=== PATIENT | female | born 1985 | race Caucasian/White ===

== ENCOUNTER 2017-06-19 13:31 | Inpatient (IN) | payer OTHER ==
--- OUTSIDE RECORDS SUMMARY | ~2017-06-19 | XMS ---
Demographics + + + | Address | [address] | | | [place] [address] | + + + | Preferred Language | Unknown | + + + | Marital Status | Unknown | + + + | Jain Affiliation | Unknown | + + + | Race | Unknown | + + + | Ethnic Group | Unknown | + + + Author + + + | Author | [facility] | + + + | Organization | [facility] | + + + | Address | [address] | | | [place] [address] | + + + | Phone | | + + + Care Team Providers + + + + | Care Certified Massage Therapist Name | Role | Phone | + + + + Unavailable | Unavailable | + + + + PROBLEMS +---------+ + + +--------+ + + | Type | Condition | ICD9-CM | [id number] | Onset | Condition | SNOMED | | | | Code | Code | Dates | Status | Code | +---------+ + + +--------+ + + | Problem | Encounter | Z34.90 | | | Active | [id number] | | | for | | | | | | | | supervisio | | | | | | | | n of | | | | | | | | normal | | | | | | | | | | | | | | +---------+ + + +--------+ + + | Problem | Pharyngiti | | J02.9 | | Active | [id number] | | | s | | | | | | +---------+ + + +--------+ + + | Problem | Spotting | N92.0 | | | Active | [id number] | +---------+ + + +--------+ + + | Problem | Otitis | H60.90 | | | Active | 3968783 | | | externa | | | | | | +---------+ + + +--------+ + + | Problem | Lymphadeno | | R59.1 | | Active | 56557507 | | | lilly | | | | | | +---------+ + + +--------+ + + ALLERGIES No Information SOCIAL HISTORY Never Assessed PLAN OF CARE VITAL SIGNS MEDICATIONS Unknown Medications RESULTS No Results PROCEDURES No Known procedures IMMUNIZATIONS No Known Immunizations MEDICAL (GENERAL) HISTORY + + +--------+ | Type | Description | Date | + + +--------+ | Medical History | Anxiety/Depression - off | | | | medication | | + + +--------+ | Medical History | STD - condyloma 2005 | | + + +--------+ | Medical History | degenerative disc disease | | | | (L4-L5) | | + + +--------+ | Surgical History | cholecystectomy | 10/2015 | + + +--------+ | Surgical History | Laparoscopic Right | 2013 | | | Salpingectomy, | | | | Hysteroscopic Resection of | | | | Uterine Septum | | + + +--------+ | Surgical History | lipoma removed Right | 2004 | | | Shoulder | | + + +--------+ | Surgical History | wisdom teeth extract | | + + +--------+"
--- OUTSIDE RECORDS SUMMARY | ~2017-06-19 | XMS ---
Demographics + + + | Address | [address] | | | [place] [address] | + + + | Preferred Language | Unknown | + + + | Marital Status | Unknown | + + + | Catholic Affiliation | Unknown | + + + | Race | Unknown | + + + | Ethnic Group | Unknown | + + + Author + + + | Author | [facility] | + + + | Organization | [facility] | + + + | Address | [address] | | | [place] [address] | + + + | Phone | | + + + Care Team Providers + + + + | Care Physical Scientist Name | Role | Phone | + + + + Unavailable | Unavailable | + + + + PROBLEMS +---------+ + + +--------+ + + | Type | Condition | ICD9-CM | [id number] | Onset | Condition | SNOMED | | | | Code | Code | Dates | Status | Code | +---------+ + + +--------+ + + | Problem | Encounter | Z34.90 | | | Active | [id number] | | | for | | | | | | | | supervisio | | | | | | | | n of | | | | | | | | normal | | | | | | | | | | | | | | +---------+ + + +--------+ + + | Problem | Pharyngiti | | J02.9 | | Active | [id number] | | | s | | | | | | +---------+ + + +--------+ + + | Problem | Spotting | N92.0 | | | Active | [id number] | +---------+ + + +--------+ + + | Problem | Otitis | H60.90 | | | Active | 3493694 | | | externa | | | | | | +---------+ + + +--------+ + + | Problem | Lymphadeno | | R59.1 | | Active | [id number] | | | lilly | | | [...]
[~2017-06-19 13:31] MED LIST: ACETAMINOPHEN325 M1 PO; BENEFIBER1 EAC1 PO; DHEA50 MG PO; FISH OIL 1,0001 EAC1 PO; IBUPROFEN800 MG PO; MULTI VITAMIN1 EACH PO; NORCO 5-325 TA1 EACH PO; OXYCODON-ACETA1 EAC2 PO; PERCOCET 7.5-31 EACH PO; PRENATAL VITAM1 EAC3 PO; PROBIOTIC1 EAC1 PO; VITAMIN D1000 UNIT PO
[2017-06-20] MEDS ORDERED: PROBIOTIC1 EAC1 PO (01:11)
[2017-06-20] MEDS ORDERED: PRENATAL VITAM1 EAC7 PO (01:11)
== END 2017-06-21 14:30 | disposition home or self-care (01) | DRG 775 ==
LOC: FBC 06-20 00:02
PROVIDERS: ADMIT General Practice
PROC: 10E0XZZ Delivery of Products of Conception, External Approach (ICD-10-PCS; principal; 2017-06-20)
PROC: 0KQM0ZZ Repair Perineum Muscle, Open Approach (ICD-10-PCS; 2017-06-20)
PROC: 3E0P7VZ Introduction of Hormone into Female Reproductive, Via Natural or Artificial Opening (ICD-10-PCS; 2017-06-20)
PROC: 0UQMXZZ Repair Vulva, External Approach (ICD-10-PCS; 2017-06-20)
PROC: 00HU33Z Insertion of Infusion Device into Spinal Canal, Percutaneous Approach (ICD-10-PCS; 2017-06-20)
PROC: 3E0R3BZ Introduction of Anesthetic Agent into Spinal Canal, Percutaneous Approach (ICD-10-PCS; 2017-06-20)
DX: O24.420 Gestational diabetes mellitus in childbirth, diet controlled (principal); O77.0 Labor and delivery complicated by meconium in amniotic fluid; O71.82 Other specified trauma to perineum and vulva; O48.0 Post-term pregnancy; O70.1 Second degree perineal laceration during delivery; Z88.8 Allergy status to other drugs, medicaments and biological substances; Z87.891 Personal history of nicotine dependence; Z86.59 Personal history of other mental and behavioral disorders; Z37.0 Single live birth; Z3A.40 40 weeks gestation of pregnancy
CPT/HCPCS: 01960; 36415; 85027; J2300; J2590; J3010

== ENCOUNTER 2023-09-10 11:53 | Day surgery (SDC) | payer OTHER ==
[~2023-09-10] VITALS: Ht 160 cm; Wt 71.8 kg
[~2023-09-10 11:53] MED LIST changes: +IBLOOD GLUCOSE TEST STRIP 1 EA TEST VI PRN; +LACTATED RINGER'S 1,000 ML IV SCH; +LIDOCAINE HCL 1% 5 ML SDV INJ ONE; +MIDAZOLAM HCL 5 MG/5 ML VIAL IV PRN; +PRENATAL VITAM1 EAC7 PO; +fentaNYL citrate 100 MCG/2 ML VIAL IV PRN
[2023-09-10 12:11] VITALS: BP 121/72
[2023-09-10] MEDS ORDERED: B12 ACTIVE1000 MCG PO (12:13)
[2023-09-10] MEDS ORDERED: FORTEO2.4 M1 SQ (12:14)
[2023-09-10] MEDS ORDERED: EFFEXOR XR75 MG PO (12:15)
[2023-09-10] MEDS ORDERED: VENTOLIN HFA18 GM (12:15)
[2023-09-10] MEDS ORDERED: fentaNYL citrate 100 MCG/2 ML VIAL ONE (12:23)
[2023-09-10] MEDS ORDERED: MIDAZOLAM HCL 5 MG/5 ML VIAL ONE (12:23)
--- NOTE | 2023-09-10 14:08 | NUR ---
09/10/23 1408 Radha Chawla PT TO PACU SLEEPY BUT AROUSABLE RESPONDS TO VERBAL STIMULI. SHE DENIES PAIN AND NAUSEA.
[2023-09-10 14:31] VITALS: BP 109/69
--- NOTE | 2023-09-12 13:31 | OR ---
[facility] [address] [place], [place] [address] Signed DATE OF OPERATION: 09/10/2023 SURGEON: Umm [place] MD PREOPERATIVE DIAGNOSES: 1. History of anal fissure (resolved with medical therapy). 2. History of rectal bleeding. POSTOPERATIVE DIAGNOSES: 1. Minimal diverticula hepatic flexure. 2. Resolved anal fissure. 3. Minimal distal proctitis, probably prep related. PROCEDURE: Total colonoscopy to cecum with biopsy of rectum. ANESTHESIA: Intravenous sedation; fentanyl 100 mcg, Versed 6 mg. INDICATION: This 38-year-old white woman is a patient of Dr. Petit. She was having significant problems of constipation, perianal pain, blood per rectum, and so on. She is found to have a posterior anal fissure. Therapy included diltiazem ointment, fiber supplement, additional fluids and so forth. She has resolved her anal fissure clinically and is now to undergo colonoscopy based on her age and finding of rectal bleeding from before. She understands the risk of colonoscopy including but not limited to bleeding, infection, and perforation and wished to proceed. FINDINGS: The prep was excellent. Complete colonoscopy was undertaken of the cecum with full intubation of the cecum. Good visualization of the appendiceal orifice and ileocecal valve was noted. She had a few scattered diverticula at the hepatic flexure, but none in the left colon and sigmoid, so far as could be told. Remaining colon was normal. There was no sign of anal fissure. She had mild and minimal distal proctitis, probably bowel prep related. DESCRIPTION OF PROCEDURE: The patient was brought to the endoscopy suite and placed in the lateral decubitus position, given intravenous sedation to the point of slurred speech and nystagmus. Digital rectal examination was normal. Electronically Signed By: UMM [place] MD 09/12/23 1331 PATIENT NAME: YAMILETH DURBIN OPERATIVE REPORT DATE OF : 85 REPORT #: [id number] PHYSICIAN: UMM [place] MD PCP: ARVIND PETIT MD REPORT IS CONFIDENTIAL AND NOT TO BE RELEASED WITHOUT AUTHORIZATION [facility] [address] [place], [place] [address] Signed An Olympus video colonoscope was passed in the rectum and manipulated throughout the colon noting a few scattered diverticula at the hepatic flexure. The scope was ultimately advanced fully to the cecum. The ileocecal valve and appendiceal orifice were normal. Scope was withdrawn from that point and examination showed only the diverticula of the hepatic flexure. The transverse and left colon were free of diverticula. Further withdrawal to the rectum showed minimal distal inflammation, probably bowel prep related only. A biopsy was obtained nevertheless. Careful examination through the anal canal with the scope showed no sign of active fissure. Examination at conclusion externally showed no fissure disease. The patient was taken to recovery room in good condition. CONCLUDING DIAGNOSIS: Minimal diverticula at the hepatic flexure. No sign of ongoing anal fissure. PLAN: Would recommend continued use of fiber supplement and added fluids on a daily basis. Would recommend repeat colonoscopy in 10 years, sooner if symptoms should develop. She will call if symptoms should recur of anal pain or bleeding. Umm [place] MD JM/MODL /[id number] cc: Arvind Petit MD Copies: ARVIND PETIT MD ~ Electronically Signed By: UMM [place] MD 09/12/23 1331 PATIENT NAME: YAMILETH DURBIN OPERATIVE REPORT DATE OF : [birth year] REPORT #: [id number] PHYSICIAN: UMM [place] MD PCP: ARVIND PETIT MD REPORT IS CONFIDENTIAL AND NOT TO BE RELEASED WITHOUT AUTHORIZATION
--- NOTE | 2023-09-13 11:54 | PATH ---
[facility] [address] [place], [place] [address] Signed SPECIMEN(S): A RECTUM BIOPSY SPECIMEN SOURCE: A. RECTUM BIOPSY CLINICAL HISTORY: Anal fissure, minimal diverticuli FINAL PATHOLOGIC DIAGNOSIS: Rectum biopsy: - Colonic mucosa with no significant pathologic abnormalities. - Negative for inflammation or dysplasia. NA MICROSCOPIC EXAMINATION: Histologic sections of all submitted blocks are examined by light microscopy. These findings, together with the gross examination, support the pathologic diagnosis. GROSS DESCRIPTION: The specimen, labeled and designated "Jerry rectum biopsy," is received in formalin and consists of two sloan soft tissue fragments, ranging from 0.2-0.3 cm. Entirely submitted in (A1). VB (under the direct supervision of a pathologist) The Gross Description was prepared using a voice recognition system. The report was reviewed for accuracy; however, sound-alike word errors, addition and/or deletions may occur. If there is any question about this report, please contact Client Services. ADDITIONAL NOTES: Immunohistochemical and/or in situ hybridization studies if performed in this case included appropriate positive controls that reacted as expected. This test was developed and its performance characteristics determined by [facility]. It has not been cleared or approved by the U.S. Food and Drug Administration. The FDA has determined that such clearance or approval is not necessary. This test is used for clinical purposes. It should not be regarded as investigational or for research. [facility] is certified under the Clinical Laboratory Improvement Amendments of 1988 (CLIA) as qualified to perform high complexity clinical laboratory testing. PATIENT NAME: YAMILETH DURBIN PATHOLOGY DATE OF : 85 REPORT #: [id number] PHYSICIAN: JENNIE REYES PCP: ARVIND GAINES MD REPORT IS CONFIDENTIAL AND NOT TO BE RELEASED WITHOUT AUTHORIZATION [address] [place] [address] Signed PERFORMING LABORATORY: Technical component was performed [facility] [place] [address] (CLIA# [id number]). Professional interpretation was performed by [facility] [place] [address] (CLIA#: [id number]). Diagnostician: Violetta Osei MD Pathologist Electronically Signed 09/13/2023 Copies: ~ PATIENT NAME: YAMILETH DURBIN PATHOLOGY DATE OF : [birth year] REPORT #: [id number] PHYSICIAN: JENNIE REYES PCP: ARVIND GAINES MD REPORT IS CONFIDENTIAL AND NOT TO BE RELEASED WITHOUT AUTHORIZATION
== END 2023-09-10 14:35 | disposition home or self-care (01) ==
LOC: DS 11:53
PROVIDERS: ATTEND Surgery
PROC: 0DBP8ZX Excision of Rectum, Via Natural or Artificial Opening Endoscopic, Diagnostic (ICD-10-PCS; principal; 2023-09-10 13:00)
DX: K62.89 Other specified diseases of anus and rectum (principal); K57.30 Diverticulosis of large intestine without perforation or abscess without bleeding; K59.09 Other constipation; K21.9 Gastro-esophageal reflux disease without esophagitis
CPT/HCPCS: 84703; 99153; G0500; J2250; J3010; J7121

== ENCOUNTER 2023-11-10 10:49 | Emergency (ER) | payer OTHER ==
[~2023-11-10] VITALS: Ht 160 cm; Wt 67.5 kg
[~2023-11-10 10:49] MED LIST changes: +B12 ACTIVE1000 MCG PO; +EFFEXOR XR75 MG PO; +FORTEO2.4 M1 SQ; -IBLOOD GLUCOSE TEST STRIP 1 EA TEST VI PRN; -LACTATED RINGER'S 1,000 ML IV SCH; -LIDOCAINE HCL 1% 5 ML SDV INJ ONE; -MIDAZOLAM HCL 5 MG/5 ML VIAL IV PRN; +VENTOLIN HFA18 GM; -fentaNYL citrate 100 MCG/2 ML VIAL IV PRN
[2023-11-10 11:22] LABS: BASOPHILS 0.2 % (0-2); EOSINOPHILS 1.1 % (0-6); HEMATOCRIT 45.2 % (35.0-50.0); HEMOGLOBIN 15.2 g/dL (12.0-18.0); LYMPHOCYTES 14.2 % (24-44); MCHC 33.7 g/dl (30-36); MONOCYTES 7.3 % (0-12); NEUTROPHILS 77.2 % (39-80); PLATELET COUNT 303 K/uL (140-440); RBC 5.07 M/ul (4.3-5.7); RDW 13.1 (10.5-15.0)
[2023-11-10] MEDS ORDERED: ondansetron HCL 4 MG/2 ML VIAL IV ONE (11:30)
[2023-11-10 11:40] LABS: ALBUMIN 4.1 g/dL (3.4-5.0); ALKALINE PHOSPHATASE 61 U/L (46-116); ALT (SGPT) 46 U/L (14-59); ANION GAP 15.6 (7-21); AST (SGOT) 20 U/L (15-37); BILIRUBIN, TOTAL 0.8 ng/dL (0.2-1.0); BUN/CREATININE RATIO 11.11 (6.0-28.6); CALCIUM 9.6 mg/dL (8.5-10.1); CARBON DIOXIDE 24 mmol/L (21-32); CHLORIDE 99 mmol/L (98-107); CREATININE, SERUM 0.99 mg/dL (0.55-1.02); GLOMERULAR FILTRATION RATE,EST 75 mL/min (>60); MAGNESIUM 1.9 mg/dL (1.8-2.4); POTASSIUM 3.6 mmol/L (3.5-5.1); PROTEIN, TOTAL 8.2 g/dL (6.4-8.2); UREA NITROGEN 11 mg/dL (7-18)
[2023-11-10] MEDS ORDERED: SODIUM CHLORIDE 0.9% 1,000 ML IV PRN ×2 (11:45→14:15)
[2023-11-10] MEDS ORDERED: PANTOPRAZOLE SODIUM 40 MG/10 ML VIAL IV ONE (11:45)
[2023-11-10] MEDS ORDERED: DICYCLOMINE HCL 20 MG/2 ML VIAL IM ONE (11:45)
[2023-11-10 13:19] LABS: LACTIC ACID, BLOOD 0.7 mmol/L (0.4-2.0)
[2023-11-10] MEDS ORDERED: MOUNJARO12.5 MG/0. SUB-Q (14:01)
[2023-11-10] MEDS ORDERED: ONDANSETRON ODT8 MG PO (15:40)
[2023-11-10] MEDS ORDERED: COMPAZINE25 MG PR (15:40)
[2023-11-10 16:02] VITALS: BP 111/66
--- NOTE | 2023-11-11 20:59 | EKG ---
[facility] [address] [facility] [place], [place] [address] Signed Normal sinus rhythm Normal ECG When compared with ECG of 10-NOV-2023 11:25, (Unconfirmed) No significant change was found Confirmed by Prashant Stack MD ([id number]) on 11/11/2023 8:59:14 PM Electronically Signed By: PRASHANT STACK DO 11/11/232058 PATIENT NAME: RAMAKRISHNAYAMILETH Electrocardiogram DATE OF : 85 PHYSICIAN: PRASHANT STACK DO REPORT #: [id number] REPORT IS CONFIDENTIAL AND NOT TO BE RELEASED WITHOUT AUTHORIZATION
[2023-11-13 05:03] LABS: C. DIFF TOXIN B GENE TCDB,PCR Not Detected (())
== END 2023-11-10 16:02 | disposition home or self-care (01) ==
LOC: ED 10:49
PROVIDERS: Emergency Medicine
DX: K52.9 Noninfective gastroenteritis and colitis, unspecified (principal); R55 Syncope and collapse; Z91.048 Other nonmedicinal substance allergy status; Z79.899 Other long term (current) drug therapy
CPT/HCPCS: 36415; 80053; 83605; 83735; 84484; 84703; 85025; 87045; 87046; 87493; 93005; 93010; 96361; 96374; 96375; 99284-25; J0500; J2405; J2470; J7030